=== PATIENT | male | born 1970 | race Caucasian/White ===

== ENCOUNTER 2017-03-31 09:20 | Emergency (ER) | payer BC, OTHER ==
--- NOTE | 2017-03-31 09:36 | EDM.PDOC ---
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 Past medical history: As per history of present illness and as reviewed below otherwise noncontributory. Surgical history: As per history of present illness and as reviewed below otherwise noncontributory. Social history: No reported history of drug or alcohol abuse. Family history: As per history of present illness and as reviewed below otherwise noncontributory. Physical exam: HEENT: Atraumatic, normocephalic, pupils reactive, negative for conjunctival pallor or scleral icterus, mucous membranes moist, throat clear, neck supple, nontender, trachea midline. Lungs: Clear to auscultation, breath sounds equal bilaterally, chest nontender. Heart: S1S2, regular, negative for clicks, rubs, or JVD. Abdomen: Soft, nondistended, nontender. Negative for masses or hepatosplenomegaly. Negative for costovertebral tenderness. Pelvis: Stable nontender. Genitourinary: Deferred. Rectal: Deferred. Extremities: Atraumatic, negative for cords or calf pain. Neurovascular unremarkable. Neuro: Awake, alert, oriented. Cranial nerves II through XII unremarkable. Cerebellum unremarkable. Motor and sensory unremarkable throughout. Exam nonfocal. Back: Patient is some mild tenderness in paravertebral region of the level of his lower thoracic spine on the left no vertebral body or point tenderness motor and sensory is normal patient is able stand on his toes back on his heels deep tendon reflexes are normal Diagnostics: X-ray thoracic spine Therapeutics: Toradol 60 mg IM hydrocodone 10 mg by mouth Impression: #1 back pain Definitive disposition and diagnosis as appropriate pending reevaluation and review of above. - Related Data Allergies Allergy/AdvReac Type Severity Reaction Status Date / Time No Known Allergies Allergy Verified 03/31/17 09:36 Home Meds: Home Meds . [No Known Home Meds] 03/31/17 [History] ED ROS GENERAL - Review of Systems Review Of Systems: ROS reveals no pertinent complaints other than HPI. ED EXAM, GENERAL - Physical Exam Exam: See Below (See dictation) Course - Vital Signs Last Recorded V/S: Last Vital Signs Temp 36.6 C 03/31/17 09:34 Pulse 77 03/31/17 09:34 Resp 18 03/31/17 09:34 BP 143/79 H 03/31/17 09:34 Pulse Ox 97 03/31/17 09:34 - Orders/Labs/Meds Meds: Medications Discontinued Medications Generic Name Dose Route Start Last Admin Trade Name Freq PRN Reason Stop Dose Admin Hydrocodone Bitart/Acetaminophen 1 tab 03/31/17 09:42 03/31/17 09:49 [place] 325-10 Mg PO 03/31/17 09:43 Not Given ONETIME ONE Hydrocodone Bitart/Acetaminophen 1 tab 03/31/17 09:46 03/31/17 10:11 [place] 325-10 Mg PO 03/31/17 09:47 1 tab ONETIME ONE Administration Ketorolac Tromethamine 60 mg 03/31/17 09:41 03/31/17 09:49 Toradol IM 03/31/17 09:42 Not Given ONETIME ONE Ketorolac Tromethamine 60 mg 03/31/17 09:46 03/31/17 10:10 Toradol IM 03/31/17 09:47 60 mg ONETIME ONE Administration Departure - Departure Time of Disposition: 10:47 Disposition: Home, Self-Care 01 Condition: Good Clinical Impression: Thoracic myofascial strain - Discharge Information Referrals: PCP,None [Primary Care Provider] - Forms: ED Department Discharge Additional Instructions: e following information is given to patients seen in the emergency department who are being discharged to home. This information is to outline your options for follow-up care. We provide all patients seen in our emergency department with a follow-up referral. The need for follow-up, as well as the timing and circumstances, are variable depending upon the specifics of your emergency department visit. If you don't have a primary care physician on staff, we will provide you with a referral. We always advise you to contact your personal physician following an emergency department visit to inform them of the circumstance of the visit and for follow-up with them and/or the need for any referrals to a consulting specialist. The emergency department will also refer you to a specialist when appropriate. This referral assures that you have the opportunity for followup care with a specialist. All of these measure are taken in an effort to provide you with optimal care, which includes your followup. Under all circumstances we always encourage you to contact your private physician who remains a resource for coordinating your care. When calling for followup care, please make the office aware that this follow-up is from your recent emergency room visit. If for any reason you are refused follow-up, please contact the [facility] emergency department at and asked to speak to the emergency department charge nurse. Ultram Flexeril as prescribed follow-up primary medical doctor 1-2 days return as needed as discussed
[2017-03-31] MEDS ORDERED: Ketorolac 60 MG/2 ML SDV IM ONE ×2 (09:41→09:46)
[2017-03-31] MEDS ORDERED: Acetaminophen/HYDROcodone 325-10 MG Tab PO ONE ×2 (09:42→09:46)
--- NOTE | 2017-03-31 10:26 | CR ---
EXAMINATION: Thoracic spine HISTORY: Back pain COMPARISON: None TECHNIQUE: AP and lateral views FINDINGS: The thoracic spinal alignment is normal. The vertebral body heights and disc spaces appear well-maintained. There is no fracture or dislocation. Bone mineralization is normal. Minimal marginal osteophytes are noted. IMPRESSION: No acute osseous abnormality identified.
== END 2017-03-31 11:04 | disposition home or self-care (01) ==
LOC: MW.ED 09:20
DX: S29.012A Strain of muscle and tendon of back wall of thorax, initial encounter (principal); X58.XXXA Exposure to other specified factors, initial encounter; Y93.89 Activity, other specified
CPT/HCPCS: 72070; 96372; 99283; A9270; J1885

== ENCOUNTER 2018-03-05 13:17 | Emergency (ER) | payer BC ==
--- NOTE | 2018-03-05 13:43 | EDM.PDOC ---
ED HPI GENERAL MEDICAL PROBLEM - General Chief Complaint: Upper Extremity Injury/Pain Stated Complaint: SHOULDERS HURTS Time Seen by Provider: 03/05/18 13:19 Source of Information: Reports: Patient History Limitations: Reports: No Limitations - History of Present Illness INITIAL COMMENTS - FREE TEXT/NARRATIVE: History of present illness: []Patient has chronic bilateral shoulder pain has been diagnosed right MRI with arthritis in the left shoulder from a previous injury. Later this week patient had an employee that did not show up for work that he had to do his job which put increased strain on her shoulders. He has not been able to sleep in 3 days due to his pain. Review of systems: As per history of present illness and below otherwise all systems reviewed and negative. Past medical history: As per history of present illness and as reviewed below otherwise noncontributory. Surgical history: As per history of present illness and as reviewed below otherwise noncontributory. Social history: No reported history of drug or alcohol abuse. Family history: As per history of present illness and as reviewed below otherwise noncontributory. Physical exam: General: Well developed, well nourished in NAD HEENT: Atraumatic, normocephalic, pupils reactive, negative for conjunctival pallor or scleral icterus, mucous membranes moist, throat clear, neck supple, nontender, trachea midline. Lungs: Clear to auscultation, breath sounds equal bilaterally, chest nontender. Heart: S1S2, regular, negative for clicks, rubs, or JVD. Abdomen: Soft, nondistended, nontender. Negative for masses or hepatosplenomegaly. Negative for costovertebral tenderness. Pelvis: Stable nontender. Genitourinary: Deferred. Rectal: Deferred. Extremities: Atraumatic, without tenderness negative for cords or calf pain. Neurovascular unremarkable. Neuro: Awake, alert, oriented. Cranial nerves II through XII unremarkable. Cerebellum unremarkable. Motor and sensory unremarkable throughout. Exam nonfocal. Skin:warm and dry Diagnostics: None Therapeutics: Toradol ED Course: Unremarkable Impression: Bilateral shoulder arthritis Prescriptions: Voltaren topical, high-dose fish oil 3000 -5000 mg daily Plan: Follow-up with primary care Definitive disposition and diagnosis as appropriate pending reevaluation and review of above. Bilateral Shoulder Pain Score (Numeric/FACES): 9 - Related Data Allergies Allergy/AdvReac Type Severity Reaction Status Date / Time No Known Allergies Allergy Verified 03/05/18 13:40 Home Meds: Home Meds Diclofenac Sodium 2 gm TP QID PRN #100 gel..gram. 03/05/18 [Rx] Past Medical History - Past Health History Medical/Surgical History: Denies Medical/Surgical History - Past Surgical History GI Surgical History: Reports: Appendectomy Social & Family History - Family History Family Medical History: Noncontributory - Caffeine Use Caffeine Use: Reports: Coffee Review of Systems - Review of Systems Review Of Systems: ROS reveals no pertinent complaints other than HPI. ED EXAM, GENERAL - Physical Exam Exam: See Below (See history of present illness) Course - Vital Signs Last Recorded V/S: Last Vital Signs Temp 97.9 F 03/05/18 13:34 Pulse 76 03/05/18 13:34 Resp 18 03/05/18 13:34 BP 137/86 03/05/18 13:34 Pulse Ox 96 03/05/18 13:34 Departure - Departure Time of Disposition: 13:43 Disposition: Home, Self-Care 01 Condition: Good Clinical Impression: Arthritis of both shoulder regions - Discharge Information *PRESCRIPTION DRUG MONITORING PROGRAM REVIEWED*: No *COPY OF PRESCRIPTION DRUG MONITORING REPORT IN PATIENT ALVARO: No Prescriptions: Diclofenac Sodium 2 gm TP QID PRN #100 gel..gram. PRN Reason: Pain Referrals: PCP,None [Primary Care Provider] - Forms: ED Department Discharge Additional Instructions: The following information is given to patients seen in the emergency department who are being discharged to home. This information is to outline your options for follow-up care. We provide all patients seen in our emergency department with a follow-up referral. The need for follow-up, as well as the timing and circumstances, are variable depending upon the specifics of your emergency department visit. If you don't have a primary care physician on staff, we will provide you with a referral. We always advise you to contact your personal physician following an emergency department visit to inform them of the circumstance of the visit and for follow-up with them and/or the need for any referrals to a consulting specialist. The emergency department will also refer you to a specialist when appropriate. This referral assures that you have the opportunity for follow-up care with a specialist. All of these measure are taken in an effort to provide you with optimal care, which includes your follow-up. Under all circumstances we always encourage you to contact your private physician who remains a resource for coordinating your care. When calling for follow-up care, please make the office aware that this follow-up is from your recent emergency room visit. If for any reason you are refused follow-up, please contact the [facility] Emergency Department at and asked to speak to the emergency department charge nurse. Take meds as directed, use a high-dose quality fish oil 3000 5000 mg daily, follow-up with primary care. [facility] Primary Care [facility] [place] [id number]
== END 2018-03-05 13:55 | disposition home or self-care (01) ==
LOC: MW.ED 13:17
DX: M19.012 Primary osteoarthritis, left shoulder (principal); M19.011 Primary osteoarthritis, right shoulder
CPT/HCPCS: 99282; 99283